=== PATIENT | female | born 1945 | race Caucasian/White ===

== ENCOUNTER → 2019-02-08 09:32 | Outpatient (CLI) | payer MEDICARE, SELFPAY ==
--- NOTE | 2019-02-08 09:45 | RAD_ITS ---
STUDY: CHEST FLUOROSCOPY. REASON FOR EXAM: Female, 73 years old. Dyspnea. Hypoxemia. FLUOROSCOPY TIME (if supplied): (0:26) minutes/seconds TECHNIQUE: Inspiration and expiration imaging was obtained. COMPARISON: None. FINDINGS: There is elevation of the right hemidiaphragm. There is normal translation of the right and left hemidiaphragms during inspiration and expiration. RAD/Chest Sniff Test Fluoro Only IMPRESSION: No evidence of diaphragmatic paralysis. Electronically Signed: Greg Obando, at 15:28 EDT , Service support ,
== END ==
PROVIDERS: Family Provider Family Medicine; PCP Family Medicine; Referring Provider Internal Medicine Pulmonary Disease; Visit Provider Internal Medicine Pulmonary Disease
DX: R09.02 Hypoxemia (principal); R06.00 Dyspnea, unspecified
CPT/HCPCS: 76000

== ENCOUNTER → 2019-03-10 12:30 | Outpatient (CLI) | payer MEDICARE, SELFPAY ==
--- NOTE | 2019-03-10 12:34 | CT_ITS ---
STUDY: CT CHEST WITHOUT CONTRAST REASON FOR EXAM: Female, 73 years old. Lung disease. COPD. RADIATION DOSAGE (If Supplied By Facility): CTDIvol = ( 22.20 ) mGy, DLP = ( 683.95 ) mGycm TECHNIQUE: Transaxial imaging was performed without the administration of intravenous contrast material. Individualized dose optimization techniques were used for this CT. COMPARISON: None. FINDINGS: Normal lung volumes. Elevated hemidiaphragms especially on the right. Subsegmental atelectasis and/or scarring in both lung bases worse on the right. No definite infiltrates. No effusions. Normal heart and pericardium. There are calcifications of the coronary arteries. Normal mediastinum. Normal hilar regions. Normal unenhanced pulmonary arteries. There is atherosclerotic calcification of the aortic arch with tortuosity and elongation of the aortic arch and descending thoracic aorta. Normal osseous structures. There is no demonstrated acute abnormality of the visualized upper abdomen. CT/Chest without Contrast IMPRESSION: Probable subsegmental atelectasis or scarring in both lower lobes. No definite acute abnormality. Electronically Signed: Venkata Kenney MD at 21:17 EDT , Service support ,
== END ==
PROVIDERS: Family Provider Family Medicine; PCP Family Medicine; Referring Provider Internal Medicine Pulmonary Disease; Visit Provider Internal Medicine Pulmonary Disease
DX: J84.9 Interstitial pulmonary disease, unspecified (principal)
CPT/HCPCS: 71250